=== PATIENT | male | born 1995 | race Caucasian/White ===

== ENCOUNTER 2020-08-10 21:00 | Emergency (ER) | payer OTHER ==
[~2020-08-10 21:00] MED LIST: BACTRIM DS TAB1 EACH PO; PROTONIX 40MG T40 MG PO
== END 2020-08-10 22:05 | disposition admitted as inpatient to this hospital (09) ==
LOC: FER 21:00
DX: S60.852A Superficial foreign body of left wrist, initial encounter (principal); W45.8XXA Other foreign body or object entering through skin, initial encounter; Z23 Encounter for immunization
CPT/HCPCS: 73110; 90471; 90715